=== PATIENT | male | born 1970 | race Caucasian/White ===

== ENCOUNTER 2019-08-25 19:41 | Emergency (ER) | payer BC, SELFPAY ==
[2019-08-25 19:50] VITALS: BP 135/87; PULSE 80; RESP 20; TEMP 36.9; O2SAT 97
--- NOTE | 2019-08-25 19:57 | ED.SKABFB ---
HPI - Skin/Abscess/Foreign Bdy General Chief complaint: Allergic Reaction Stated complaint: Right arm bee sting Time Seen by Provider: 08/25/19 19:57 Source: patient Mode of arrival: ambulatory Limitations: no limitations History of Present Illness HPI narrative: Lito Foley is a 49 yo male with no PMH who comes here with a bee sting to R arm. R forearm, hand, and fingers swollen. Bee sting occurred yesterday afternoon, has gotten larger as the days progressed Patient states has not had this reaction before; discussed that patient will need an EpiPen Related Data Allergies Allergy/AdvReac Type Severity Reaction Status Date / Time No Known Allergies Allergy Verified 08/25/19 19:56 Review of Systems Review of Systems: Narrative: CONSTITUTIONAL: Denies fever, chills, sweats. EYES: Denies visual changes, redness, discharge. ENT: Denies rhinorrhea, congestion, sore throat, otalgia. CARDIOVASCULAR: Denies chest pain, palpitations, edema. RESPIRATORY: Denies dyspnea, wheezing, cough GASTROINTESTINAL: Denies abdominal pain, nausea, vomiting, diarrhea. GENITOURINARY: Denies dysuria, hematuria, abnormal discharge SKIN: Denies rash or itching. Right arm swelling redness distal to elbow down to tip of fingers NEUROLOGIC: Denies numbness, or focal weakness. PSYCHIATRIC: Denies anxiety or depression. [facility] Family History Family History Other No active medical problems Social History Social History (Updated 08/25/19 @ 20:08 by Lee Ann Tompkins CNP) Smoking packs per day: 1.5 Smoking cigarettes per day: 30.0 Smoking status: Current every day smoker Alcohol intake: current Comments At time of signature, I agree with nursing past medical, surgical, social and family history. There is no relevant family history pertinent to the presenting complaint. Exam Narrative: Exam Narrative: GENERAL: This is a well-nourished, well-developed patient, in mild distress. HEAD: normocephalic, atraumatic. EYES: Sclera clear/white. Vision is grossly intact. EARS: External ears normal, . Hearing grossly intact. NOSE: External nose normal without nasal discharge, nares without redness, no rhinorrhea. THROAT: Mucous membranes moist, posterior pharynx no angioedema NECK: Neck supple, non-tender CARDIOVASCULAR: Regular rate and rhythm without murmurs, gallops, or rubs. RESPIRATORY: Clear to auscultation. Breath sounds equal bilaterally. No wheezes, rales, or rhonchi. GASTROINTESTINAL: Abdomen soft, SKIN: warm, intact with no suspicious lesions or rash, good texture and turgor. Swelling of right lower forearm and hand distal to elbow to tip of fingers red more proximal 2+ radial pulse able to make fist NEURO: awake, alert, and oriented to person, place and time. There were no obvious focal neurologic abnormalities. Steady gait EXTREMITIES: Normal range of motion. BACK: Nontender without deformity Course Course Emergency Course: Given Solu-Medrol IM and Benadryl 25 mg p.o. Started on Medrol Dosepak Benadryl to be used 3 times a day EpiPen was prescribed Follow-up with PCP Vital Signs Vital signs: Vital Signs Temperature 98.4 F 08/25/19 19:50 Pulse Rate 80 08/25/19 19:50 Respiratory Rate 20 08/25/19 19:50 Blood Pressure 135/87 08/25/19 19:50 Pulse Oximetry 97 08/25/19 19:50 Temperature 98.4 F 08/25/19 19:50 Pulse Rate 80 08/25/19 19:50 Respiratory Rate 20 08/25/19 19:50 Blood Pressure 135/87 08/25/19 19:50 Pulse Oximetry 97 08/25/19 19:50 MDM - Skin/Abscess/Foreign Bdy Differential Diagnosis Differential diagnosis: Likely abscess of skin or subcutaneous tissue, viral exanthem, urticaria, eczema, insect bites, contact dermatitis and other (Allergic reaction to bee sting) Discharge Plan Discharge Clinical Impression: Allergic reaction Qualifiers: Encounter type: initial encounter Qualified Code(s): T78.40XA - Allergy, unsp
[2019-08-25] MEDS: methylPREDNISolone SOD SUCC 125 MG VIAL IM (20:00)
== END 2019-08-25 20:24 | disposition home or self-care (01) ==
PROVIDERS: Emergency Provider Nurse Practitioner
DX: T63.441A Toxic effect of venom of bees, accidental (unintentional), initial encounter (principal); F17.210 Nicotine dependence, cigarettes, uncomplicated
CPT/HCPCS: 96372; 99213; A9270; G0463; J2930

== ENCOUNTER 2019-11-29 09:26 | Emergency (ER) | payer BC, SELFPAY ==
[2019-11-29 09:30] VITALS: BP 143/86; PULSE 85; RESP 24; TEMP 36.6; O2SAT 98
--- NOTE | 2019-11-29 10:55 | ED.ABDPAIN ---
HPI - Abdominal Pain General Chief Complaint: Abdominal Pain Stated Complaint: lower flank pain Time Seen by Provider: 11/29/19 10:29 Source: patient and RN notes reviewed Mode of arrival: ambulatory Limitations: no limitations History of Present Illness HPI narrative: Patient presents today complaining of left flank and left upper quadrant pain since yesterday with nausea. Denies vomiting, diarrhea, constipation. No urinary symptoms. Patient typically takes Aleve daily, and took an unknown pain medication from a friend yesterday, which did help him to get some sleep yesterday. No recent injury or trauma. MD elicited complaint: abdominal pain Related Data Home Medications Medication Instructions Recorded Confirmed naproxen 250 mg PO BID PRN 11/29/19 11/29/19 Allergies Allergy/AdvReac Type Severity Reaction Status Date / Time No Known Allergies Allergy Verified 11/29/19 10:02 Review of Systems Review of Systems: Narrative: CONSTITUTIONAL: Denies body aches, fever, chills, or sweats. EYES: Denies visual changes, redness, or discharge. ENT: Denies rhinorrhea, congestion, sore throat, or otalgia. CARDIOVASCULAR: Denies chest pain, palpitations, or edema. RESPIRATORY: Denies cough or dyspnea. GASTROINTESTINAL: Denies vomiting, or diarrhea.+ Nausea, abdominal pain GENITOURINARY: Denies dysuria or hematuria. SKIN: Denies rash, itching, or wounds. MUSCULOSKELETAL: Denies back pain, joint pain, or myalgia. NEUROLOGIC: Denies headache, numbness, tingling, or weakness. PSYCH: Denies depression or anxiety. [facility] Family History Family History Other No active medical problems Social History Social History (Updated 08/25/19 @ 20:08 by Lee Ann Tompkins CNP) Smoking packs per day: 1.5 Smoking cigarettes per day: 30.0 Smoking status: Current every day smoker Alcohol intake: current Comments At time of signature, I have reviewed and agree with nursing past medical, surgical, social and family history unless otherwise noted. Please see nursing chart for further information. There is no relevant family history pertinent to the presenting complaint Exam Narrative: Exam Narrative: GENERAL: Well-appearing, well-nourished, and in moderate pain distress. HEAD: Normocephalic, atraumatic. EYES: EOMI. No redness or drainage. Conjunctivae normal. ENT: Mucous membranes pink and moist. NECK: Normal AROM. CHEST: No respiratory distress. Clear to auscultation. HEART: Regular rate and rhythm. No murmur appreciated. Normal peripheral pulses. ABDOMEN: Soft, nondistended, normal active bowel sounds. + Left CVAT. Left upper quadrant tender to palpation with rebound. MUSCULOSKELETAL: No bony tenderness. EXTREMITIES: Normal range of motion. No edema. SKIN: Warm, dry, no rash. Capillary refill normal. Normal skin turgor. NEURO: No focal deficits. Alert and oriented x3. Gait steady. PSYCH: Normal affect. No signs of depression or anxiety. Course Vital Signs Vital signs: Vital Signs Temperature 97.9 F 11/29/19 09:30 Pulse Rate 85 11/29/19 09:30 Respiratory Rate 24 H 11/29/19 09:30 Blood Pressure 143/86 H 11/29/19 09:30 Pulse Oximetry 98 11/29/19 09:30 Temperature 97.9 F 11/29/19 09:30 Pulse Rate 85 11/29/19 09:30 Respiratory Rate 24 H 11/29/19 09:30 Blood Pressure 143/86 H 11/29/19 09:30 Pulse Oximetry 98 11/29/19 09:30 Reviewed. Transfer Transfered to: [facility] Transportation: Other (Private vehicle) Transfer rationale: Abdominal and flank pain Accepting physician: Cynthia MDM - Abdominal Pain Differential Diagnosis Differential diagnosis: Likely abdominal pain, calculus of kidney, diverticulitis, pancreatitis and other (pneumonia, ) Lab Data Attestation: I reviewed the patient's lab results. Labs: Urine Glucose Negative Reference Range: Nega
--- NOTE | 2019-11-29 10:55 | PC.NURSE ---
NO UC ORDERED PER PROVIDER
== END 2019-11-29 11:08 | disposition short-term general hospital (02) ==
PROVIDERS: Emergency Provider Nurse Practitioner
DX: R10.12 Left upper quadrant pain (principal); F17.210 Nicotine dependence, cigarettes, uncomplicated
CPT/HCPCS: 81003; 99212; G0463

== ENCOUNTER 2022-07-06 08:33 | Outpatient (CLI) | payer BC, SELFPAY ==
[2022-07-06 14:38] LABS: Kit Draw Collected
== END 2022-07-06 08:34 | disposition home or self-care (01) ==
LOC: ANHGOSHLAB 08:34
PROVIDERS: PCP Internal Medicine; Visit Provider Nurse Practitioner
DX: Z13.228 Encounter for screening for other metabolic disorders (principal); Z12.5 Encounter for screening for malignant neoplasm of prostate; E78.5 Hyperlipidemia, unspecified
CPT/HCPCS: 36415

== ENCOUNTER 2022-09-22 01:08 | Day surgery (SDC) | payer BC, SELFPAY ==
[2022-09-13 13:56] VITALS: BMI 31.9
[2022-09-22 06:27] VITALS: BP 146/78; PULSE 76; RESP 20; TEMP 36.4; O2SAT 98; BMI 31.3
[2022-09-22] MEDS: LACTATED RINGERS 1,000 ML 150 ML IV CONT (06:38)
--- NOTE | 2022-09-22 07:16 | P.HP_ITS ---
History of Present Illness History of Present Illness Consent: Risks, benefits, and alternatives have been discussed and questions answered. Patient agrees to proceed with procedure. Chief complaint: neoplasm screening Narrative: Lito Foley is a 52 year old male Presents for screening colonoscopy. Patient's current weight appetite and bowel movements are normal. Patient denies abdominal pain. He has had no bleeding. Family history noncontributory. Review of Systems Review of Systems: Review of systems noncontributory. [facility]LY [facility], [facility] Past Medical History Medical History (Updated 09/22/22 @ 07:18 by Gaurav Roman MD) GERD (gastroesophageal reflux disease) Surgical History Surgical History (Updated 07/06/22 @ 07:43 by Roseline Arevalo) [place] teeth removed (~1994) Family History Family History (Updated 07/06/22 @ 07:45 by Roseline Arevalo) Mother Diabetes mellitus Heart disease Other Cancer Grandparent Cancer Other Family history of lung cancer Family history of malignant neoplasm of esophagus No active medical problems Social History Social History (Updated 07/06/22 @ 07:46 by Roseline Arevalo) Social History: Caffeine-daily Smoking packs per day: 1.5 Smoking cigarettes per day: 30.0 Years smoked: 30 Smoking pack-years: 45.00 Smoking status: Current every day smoker Tobacco type: cigarettes Second hand tobacco smoke exposure: Yes Alcohol intake: former Substance use: never Substance use type: does not use Living arrangements: with family Spiritual care concerns: No Meds Home Medications and Allergies Home Medications Medication Instructions Recorded Confirmed Type acetaminophen 650 mg 650 mg PO Q8H PRN Pain, Moderate 09/13/22 09/22/22 History tablet,extended release Allergies Allergy/AdvReac Type Severity Reaction Status Date / Time bee venom protein (honey bee) Allergy Severe Anaphylaxis Verified 09/22/22 06:09 Vital Signs Vital Signs - 24 hr 09/22/22 06:27 Temperature 97.6 F Pulse Rate 76 Respiratory Rate 20 Blood Pressure 146/78 H Pulse Oximetry 98 Oxygen Delivery Room Air Exam Narrative: Physical exam reveals patient to be alert. Vital signs stable. HEENT exam is unremarkable. Patient is anicteric. Lungs are clear to auscultation and percussion. Heart is without murmur or extra sounds. Abdomen bowel sounds are present soft nontender with no organomegaly. Digital external rectal exam is normal. Assessment and Plan Assessment and plan (1) Encounter for screening colonoscopy: Code(s): Z12.11 - Encounter for screening for malignant neoplasm of colon Status: Acute Assessment and Plan: Patient presents for screening colonoscopy today. he appears to be at average risk for colon polyps.
--- NOTE | 2022-09-22 07:20 | P.PNAN_ITS ---
Anes - Initial Pre Proc Eval Procedure: Operation Date: 09/22/22 07:30 Proposed Procedures p Screening Colonoscopy - Gaurav Roman MD Date/Time: 09/22/22 07:20 Surgeon: Gaurav Roman MD Pre Op Diagnosis: neoplasm screening Patient Data Age: 52 Gender: M Height: 1.73 m Weight: 93.5 kg Last Vital Signs Temp 97.6 F 09/22/22 06:27 Pulse 76 09/22/22 06:27 Resp 20 09/22/22 06:27 BP 146/78 H 09/22/22 06:27 Pulse Ox 98 09/22/22 06:27 O2 Del Method Room Air 09/22/22 06:27 Allergies Allergy/AdvReac Type Severity Reaction Status Date / Time bee venom protein (honey bee) Allergy Severe Anaphylaxis Verified 09/22/22 06:09 Home Medications Medication Instructions Recorded Confirmed Type acetaminophen 650 mg 650 mg PO Q8H PRN Pain, Moderate 09/13/22 09/22/22 History tablet,extended release Patient hx anesthesia problems: none Family hx anesthesia problems: none Results Review: All pre-operative results and documents have been reviewed as part of the pre- operative evaluation. [facility] Past Medical History Medical History (Updated 09/22/22 @ 07:18 by Gaurav Roman MD) GERD (gastroesophageal reflux disease) Surgical History Surgical History (Updated 07/06/22 @ 07:43 by Roseline Arevalo) [place] teeth removed (~1994) Family History Family History (Updated 07/06/22 @ 07:45 by Roseline Arevalo) Mother Diabetes mellitus Heart disease Other Cancer Grandparent Cancer Other Family history of lung cancer Family history of malignant neoplasm of esophagus No active medical problems Social History Social History (Updated 07/06/22 @ 07:46 by Roseline Arevalo) Social History: Caffeine-daily Smoking packs per day: 1.5 Smoking cigarettes per day: 30.0 Years smoked: 30 Smoking pack-years: 45.00 Smoking status: Current every day smoker Tobacco type: cigarettes Second hand tobacco smoke exposure: Yes Alcohol intake: former Substance use: never Substance use type: does not use Living arrangements: with family Spiritual care concerns: No Anes - Eval Final PreProcedure Day of Procedure 09/22/22 07:20 Patient weight: obese Heart: regular rate and rhythm Lungs: clear to auscultation Airway: Mallampati scale class II Neurological: alert and oriented Last oral intake: >/= 8 hours ASA classification: II Emergent: no Anesthetic plan: proceed Anesthesia type and monitoring: general GIVS and standard monitoring Results Review: All pre-operative results and documents have been reviewed as part of the pre- operative evaluation. Informed Consent: The patient's anesthetic plan and its attendant risks and benefits were discussed with the patient/family/POA. Questions were solicited and answers provided to the satisfaction of the patient/family/POA.
[2022-09-22 07:47] VITALS: BP 108/73; PULSE 71; RESP 20; O2SAT 97
[2022-09-22 07:57] VITALS: BP 119/77; PULSE 62; RESP 22; O2SAT 97
[2022-09-22 08:07] VITALS: BP 136/87; PULSE 63; RESP 21; O2SAT 100
== END 2022-09-22 08:14 | disposition home or self-care (01) ==
PROVIDERS: PCP Internal Medicine; Visit Provider Internal Medicine Gastroenterology
PROC: 0DJD8ZZ Inspection of Lower Intestinal Tract, Via Natural or Artificial Opening Endoscopic (ICD-10-PCS; CPT 45378; principal; 2022-09-22 07:30)
DX: Z12.11 Encounter for screening for malignant neoplasm of colon (principal); D17.5 Benign lipomatous neoplasm of intra-abdominal organs; K57.32 Diverticulitis of large intestine without perforation or abscess without bleeding; K21.9 Gastro-esophageal reflux disease without esophagitis; F17.210 Nicotine dependence, cigarettes, uncomplicated; E66.9 Obesity, unspecified; Z68.31 Body mass index [BMI] 31.0-31.9, adult
CPT/HCPCS: 45385; 88305; J2704; J7120

== ENCOUNTER 2024-01-25 08:03 | Emergency (ER) | payer BC, SELFPAY ==
--- NOTE | 2024-01-25 08:08 | ED_ITS ---
HPI - Skin/Abscess/Foreign Bdy General Chief complaint: Skin/Abscess/Foreign Body Stated complaint: rash on left side Time Seen by Provider: 01/25/24 08:16 Source: patient, RN notes reviewed and old records reviewed Mode of arrival: ambulatory Limitations: no limitations History of Present Illness HPI narrative: 53 year old male presents to [facility] care with complaints of rash to the left upper lateral chest region for the past 2 days with is red raised with itching and also burning sensation. Patient reports that he just completed steroid pack and also antibiotic for dental infection after having crown placed on tooth just prior to rash noted. Patient has 5-6 red raised rash grouped together with no pustules noted on left lateral upper chest area. MD complaint: rash Onset (ago): day(s) (2) Location: chest (left lateral upper) Severity scale (1-10): 4 Quality: burning and pruritic Treatments prior to arrival: other (Tylenol) Related Data Allergies Allergy/AdvReac Type Severity Reaction Status Date / Time bee venom protein (honey bee) Allergy Severe Anaphylaxis Verified 09/22/22 06:09 Review of Systems Review of Systems: CONSTITUTIONAL: Denies fever, chills, or sweats. CARDIOVASCULAR: Denies chest pain, palpitations, or edema. RESPIRATORY: Denies cough or dyspnea. SKIN: Reports red raised rash to his left lateral upper chest area which is burning and itchy for 2 days. MUSCULOSKELETAL: Denies joint pain or myalgia. NEUROLOGIC: Denies headache, numbness, or weakness. All systems reviewed & are unremarkable except as noted in HPI and below PMFSH Past Medical History Medical History GERD (gastroesophageal reflux disease) Surgical History Surgical History [place] teeth removed (~1994) Family History Family History Mother Diabetes mellitus Heart disease Other Cancer Grandparent Cancer Other Family history of lung cancer Family history of malignant neoplasm of esophagus No active medical problems Social History Social History Social History: Caffeine-daily Smoking packs per day: 1.5 Smoking cigarettes per day: 30.0 Years smoked: 30 Smoking pack-years: 45.00 Smoking status: Current every day smoker Tobacco type: cigarettes Second hand tobacco smoke exposure: Yes Alcohol intake: former Substance use: never Substance use type: does not use Living arrangements: with family Spiritual care concerns: No Comments At time of signature, agree with nursing past medical, surgical, social and family history. There is no relevant family history pertinent to the presenting complaint Exam Narrative: GENERAL: Well-appearing, well-nourished, and in no acute distress. HEAD: Normocephalic, atraumatic. EYES: PERRLA, conjunctivae clear, and EOMI. ENT: Mucous membranes moist. Oropharynx without edema, erythema or lesions. NECK: Supple. No lymphadenopathy CHEST: Clear to auscultation. No respiratory distress.SAO2 100% on room air HEART: Regular rate and rhythm. SKIN: Warm, dry.? 5-6 grouped red raised lesions noted to left lateral upper chest which is itchy and burning with no noted pustules noted for the past 2 days NEURO:? Alert and oriented x3. PSYCH: Normal mood and affect Course Course Emergency Course: Patient is aware of diagnosis, understands and agrees to treatment plan.? Anticipatory guidance given.? Patient agrees to follow-up as directed and is aware of reasons to seek care at the emergency department. Portions of this record may have been created with voice recognition software Level of Care: Express Care Visit Vital Signs Vital signs: Vital Signs Temperature 36.6 C 01/25/24 08:15 Pulse Rate 79 01/25/24 08:15 Respiratory Rate 19 01/25/24 08:15 Blood Pressure 143/77 H 01/25/24 08:15 Pulse Oximetry 100 01/25/24 08:15 Oxygen Delivery Room Air 01/25/24 08:15 Temperature 36.6 C 01/25/24 08:15 Pulse Rate 79 01/25/24 08:15 Respiratory Rate 19 01/25/24 08:15 Blood Pressure 143/77 H 01/25/24 08:15 Pulse Oximetry 100 01/25/24 08:15 Oxygen Delivery Room Air 01/25/24 08:15 Reviewed MDM - Skin/Abscess/Foreign Bdy MDM Narrative Medical decision making narrative: Does not appear at this time to be erythema multiforme, bullous, SJS, TEN; no evidence at this time to suggest RMSF, endocarditis or Lyme disease; patient looks well, nontoxic and is tolerating oral intake; no neurologic signs or symptoms; no headache, photophobia or neck pain; afebrile; appropriate for initial outpatient treatment; discussed the importance of follow-up, patient agrees; question, viral exanthema, contact dermatitis, allergic dermatitis, eczema, urticaria. No soft palate or uvula edema, no tongue, lip edema or other mucosal involvement, no respiratory compromise, no stridor, no wheezing, no wheezing, no history of syncope, no hypotension, no nausea, vomiting, or diarrhea.? Instructed patient to go to nearest ER immediately for any worsening symptoms including but not limited to: fever, spreading rash, pain, sore throat, headache, dizziness, chest pain, trouble breathing, or any symptoms concerning to the patient. Differential Diagnosis Differential diagnosis: Likely abscess of skin or subcutaneous tissue, urticaria, herpes zoster and contact dermatitis Medical Records Attestation: I reviewed the patient's medical records. Critical Care Time Critical Care Time Critical Care Time: No Discharge Plan Discharge Clinical Impression: Shingles rash Qualifiers: Herpes zoster complications: without complications Qualified Code(s): B02.9 - Zoster without complications Patient Disposition: Home, Self-Care Condition: Stable Instructions: Valacyclovir (By mouth), Shingles (ED) Additional Instructions: Apply lidocaine ointment up to 4 times daily watch for any infection--redness, swelling, drainage Tylenol or Ibuprofen for any pain or fever follow up with PCP in 7-10 days for a wound check recheck if develop fever, chills, increasing symptom Go to the ER if your symptoms become worse of if ANY new symptoms develop Valtrex as prescribed till completed If your symptoms persist, change or worsen significantly before you can contact your personal physician then please, without delay, go to the emergency department for further evaluation. Follow-up with PCP in 7-10 days or sooner if needed Follow up with PCP soon in regards to your blood pressure which is elevated above threshold for referral. Blood pressure above 120/80 may indicate pre- hypertension.143/77 Prescriptions: New valacyclovir [Valtrex] 1 gram tablet 1,000 mg PO Q8H Qty: 21 0RF Rx Instructions: take all doses lidocaine 5 % ointment 1 applic topical QID PRN (Reason: pain) Qty: 30 0RF Follow-up/Referrals: Francisco Javier Marroquin DO [Primary Care Provider] - Time of Disposition: 08:32 Quality Dustin Coma Scale Eyes: Open Verbal: Oriented and Alert Motor: Follows Commands [place] Coma Total Score: 15
[2024-01-25 08:15] VITALS: BP 143/77; PULSE 79; RESP 19; TEMP 36.6; O2SAT 100
== END 2024-01-25 08:37 | disposition home or self-care (01) ==
PROVIDERS: Emergency Provider Registered Nurse; PCP Internal Medicine
DX: B02.9 Zoster without complications (principal); K21.9 Gastro-esophageal reflux disease without esophagitis; F17.210 Nicotine dependence, cigarettes, uncomplicated
CPT/HCPCS: 99213; G0463

== ENCOUNTER 2024-11-08 08:14 | Outpatient (CLI) | payer BC, SELFPAY ==
[2024-11-08 13:29] LABS: Hematocrit 46.6 % (42.0-52.0); Hemoglobin 15.9 g/dL (14.0-18.0); Immature Granulocyte Percent A 0.3 % (0-0.5); Lymphocytes Absolute Auto 1.88 K/mm3 (0.9-3.2); Mean Corpuscular HGB Conc 34.1 g/dl (32-36); Mean Corpuscular Hemoglobin 33.1 pg (26-34); Mean Corpuscular Volume 97.1 fl (80-100); Nucleated Red Blood Cells Absolute Auto 0.000 K/mm3 (0.0-0.012); Nucleated Red Blood Cells Perc 0.0 % (0.0-0.2); Platelet Count Result 295 k/mm3 (150-375); Red Blood Count 4.80 M/mm3 (4.6-6.20); White Blood Count 6.4 K/mm3 (4.5-10.0)
[2024-11-08 13:48] LABS: Alanine Aminotransferase 25 U/L (6-50); Albumin Level 4.6 g/dL (3.5-5.1); Alkaline Phosphatase 73 U/L (38-126); Anion Gap 9 mmol/L (4-12); Aspartate Amino Transferase 43 U/L (17-59); Bilirubin,Total 0.9 mg/dL (0.2-1.3); Blood Urea Nitrogen 16 mg/dL (9-20); Calcium 9.4 mg/dL (8.4-10.2); Carbon Dioxide 24 mmol/L (22-30); Chloride 103 mmol/L (98-107); Cholesterol 247 mg/dL (0-200); Estimated Glomerular Filt Rate > 60; Glucose 93 mg/dL (65-110); HDL Direct 68 mg/dL; Potassium 4.1 mmol/L (3.4-5.0); Sodium 136 mmol/L (137-145); Total Protein 7.4 g/dL (6.3-8.2); Triglycerides 65 mg/dL (<150)
[2024-11-08 14:26] LABS: Prostate Specific Antigen 0.7 ng/mL (< OR = 4.0)
== END 2024-11-08 08:15 | disposition home or self-care (01) ==
LOC: ANHGOSHLAB 08:18
PROVIDERS: PCP Internal Medicine; Visit Provider Nurse Practitioner
DX: E78.5 Hyperlipidemia, unspecified (principal); Z12.5 Encounter for screening for malignant neoplasm of prostate
CPT/HCPCS: 36415; 80053; 80061; 84153; 85025; G0103

== ENCOUNTER 2024-11-27 15:01 | Outpatient (CLI) | payer BC, SELFPAY | END 2024-11-27 15:02 | disposition home or self-care (01) | LOC: ANHGOSHLAB 15:02 | PROVIDERS: PCP Internal Medicine; Visit Provider Nurse Practitioner | DX: E78.5 Hyperlipidemia, unspecified (principal) | CPT/HCPCS: 82172 ==

== ENCOUNTER 2024-11-27 15:06 | Outpatient (CLI) | payer BC, SELFPAY ==
--- NOTE | ~2024-11-27 | XR_ITS ---
EXAMINATION: XR knee RT min 4V, 11/27/2024 15:19 CDT HISTORY: Pain in right knee x 1 month pain, no inj, no surg COMPARISON: No comparisons available. Findings: No acute fracture or malalignment. No significant degenerative changes. Soft tissues unremarkable. Impression: No acute fracture or malalignment. Reviewed, dictated and finalized at location P. Impression: No acute fracture or malalignment.
== END 2024-11-27 15:07 | disposition home or self-care (01) ==
LOC: GOSHIMG 15:07
PROVIDERS: PCP Internal Medicine; Visit Provider Nurse Practitioner
DX: M25.561 Pain in right knee (principal)
CPT/HCPCS: 73564

== ENCOUNTER 2025-01-28 15:36 | Outpatient (CLI) | payer BC, SELFPAY ==
--- NOTE | ~2025-01-28 | CT_ITS ---
EXAMINATION:CT lung screening DATE: 01/28/2025 15:51 INDICATION: Smoking history. Current smoker. TECHNIQUE: Computed tomography (CT) of the chest was performed without intravenous contrast. Automated exposure control and iterative reconstruction technique were employed. The dose-length product (DLP) was 245.67 mGy-cm. COMPARISON: None. FINDINGS: Mild emphysematous lungs. No pulmonary mass or nodule are seen. No evidence of hilar or mediastinal adenopathy. No effusion. Coronary artery calcifications at the proximal left anterior descending and diagonal coronary arteries. Benign calcified granuloma in the left lower lobe. IMPRESSION: 1. Mild emphysematous lungs. Small benign calcified granuloma left lower lobe. Continue annual low-dose screening. Lung RADS category 2 Reviewed, dictated and finalized at location T. DMASTER
== END 2025-01-28 15:37 | disposition home or self-care (01) ==
LOC: MICIMG 15:37
PROVIDERS: PCP Internal Medicine; Visit Provider Nurse Practitioner
DX: J84.10 Pulmonary fibrosis, unspecified (principal); Z12.2 Encounter for screening for malignant neoplasm of respiratory organs; Z87.891 Personal history of nicotine dependence
CPT/HCPCS: 71271